=== PATIENT | male | born 1975 | race Two or more races ===

== ENCOUNTER 2017-10-09 19:20 | Emergency (ER) | payer OTHER ==
[~2017-10-09] VITALS: Ht 170.2 cm; Wt 70.8 kg
== END 2017-10-09 22:20 | disposition home or self-care (01) ==
LOC: ER 19:20
DX: A54.09 Other gonococcal infection of lower genitourinary tract (principal)

== ENCOUNTER → 2018-03-26 | Emergency (ER) | payer OTHER ==
[~2018-03-26] VITALS: Ht 170.2 cm; Wt 71.2 kg
[~2018-03-26] MED LIST: CLONAZEPAM2 M1 PO; WELLBUTRIN XL150 M1 PO
== END | disposition home or self-care (01) ==
LOC: ER 19:40
DX: S90.02XA Contusion of left ankle, initial encounter (principal); V49.9XXA Car occupant (driver) (passenger) injured in unspecified traffic accident, initial encounter; Y93.89 Activity, other specified; Y92.488 Other paved roadways as the place of occurrence of the external cause; Y99.8 Other external cause status

== ENCOUNTER 2018-04-24 15:04 | Emergency (ER) | payer OTHER ==
[~2018-04-24] VITALS: Ht 170.2 cm; Wt 72.6 kg
[2018-04-24] MEDS ORDERED: RESTORIL30 MG (16:11)
[2018-04-24] MEDS ORDERED: WELLBUTRIN XL300 MG (16:11)
[2018-04-24] MEDS ORDERED: CLONAZEPAM1 MG (16:12)
== END 2018-04-24 18:47 | disposition home or self-care (01) ==
LOC: ER 15:04
DX: M10.072 Idiopathic gout, left ankle and foot (principal); G89.11 Acute pain due to trauma